=== PATIENT | male | born 1950 | race Caucasian/White ===

== ENCOUNTER 2017-05-09 18:38 | Emergency (ER) | payer OTHER ==
[~2017-05-09] VITALS: Ht 177.8 cm; Wt 69.4 kg
[~2017-05-09 18:38] MED LIST: HYDRALAZINE HCL10 MG PO; NORCO 5-325 TA1 EACH PO; TERAZOSIN HCL1 MG PO
[2017-05-09] MEDS ORDERED: NORCO 5-325 TA1 EACH PO (19:57)
== END 2017-05-09 20:30 | disposition home or self-care (01) ==
LOC: ED 18:38
DX: S43.51XA Sprain of right acromioclavicular joint, initial encounter (principal); Z98.890 Other specified postprocedural states; W18.30XA Fall on same level, unspecified, initial encounter
CPT/HCPCS: 73030; 99283

== ENCOUNTER 2024-05-23 05:55 | Day surgery (SDC) | payer MEDICARE, OTHER ==
[2024-05-16 15:36] VITALS: BP 153/99
[~2024-05-23] VITALS: Ht 177.8 cm; Wt 84.1 kg
[~2024-05-23 05:55] MED LIST changes: +AVAPRO150 MG PO; +LACTATED RINGER'S 1,000 ML IV SCH; +MIDAZOLAM HCL 5 MG/5 ML VIAL IV PRN; +NORVASC5 MG PO; +fentaNYL citrate 100 MCG/2 ML VIAL IV PRN
[2024-05-23 06:04] VITALS: BP 154/90
[2024-05-23] MEDS ORDERED: IBLOOD GLUCOSE TEST STRIP 1 EA TEST VI PRN (07:00)
[2024-05-23] MEDS ORDERED: LIDOCAINE HCL 1% 5 ML SDV INJ ONE (07:00)
[2024-05-23] MEDS ORDERED: LIDOCAINE HCL 2% 5 ML SDV ONE (07:19)
[2024-05-23] MEDS ORDERED: propofoL 200 MG/20 ML VIAL ONE (07:19)
--- NOTE | 2024-05-23 08:39 | NUR ---
05/23/24 0839 Mary Anne Reilly 0817- PT ARRIVES TO THE PACU WITH A NATURAL AIRWAY AND 6L OF O2 VIA MASK. PT IS NON REACTIVE TO VERBAL AND TACTILE STIMULI. ABDOMEN IS SOFT AND NON DISTENDED. PT IS ON HIS LEFT SIDE WITH NO APPARENT DISTRESS. ALL MONITORS PUT IN PLACE. LR INFUSING IN IV ON THE RIGHT HAND. 0830- PT IS NONREACTIVE TO VERBAL AND TACTILE STIMULI. PT IS RESTING WITH NO APPARENT DISTRESS. WILL CONTINUE TO MONITOR. VSS.
[2024-05-23 09:08] VITALS: BP 160/97
--- NOTE | 2024-05-23 09:15 | OR ---
[facility] [address], [place] [address] Signed DATE OF OPERATION: 05/23/2024 SURGEON: Josi Gutiérrez MD PREOPERATIVE DIAGNOSES: 1. Positive Cologuard test. 2. Maternal first cousin with colon cancer. 3. Father with probable colonic polyps. POSTOPERATIVE DIAGNOSES: 1. 15 mm pedunculated polyp at 12 cm in the rectum (tattoo). 2. 5 mm polyp at base of ileocecal valve. 3. 5 mm polyp in proximal right colon. 4. 4 mm polyp in distal right colon. PROCEDURES: 1. Colonoscopy with snare polypectomy hot biopsy and injection of tattoo. 2. Rigid proctoscopy. ESTIMATED BLOOD LOSS: None. INDICATIONS: Gerhard is a 73-year-old gentleman, asked to see me for his initial colonoscopy. He has declined colonoscopies in the past. His Cologuard stool sample came back positive in January 2024. He said he has no lower GI complaints. He said he is not entirely sure if his father had colonic polyps. He is fairly confident that his maternal first cousin had colon cancer. He said he has no lower GI complaints. In the office, I gave him a pamphlet on colonoscopy. He understands the nature of the test. There is risk including, but not limited to gas bloating, crampy abdominal pain, bleeding, perforation requiring surgery, and missed diagnosis. In addition, Gerhard has sleep apnea and declines a CPAP mask. He also has been known to have medical noncompliance in the past. He has hypertension, hyperlipidemia, as well. We asked for monitored anesthesia care propofol infusion for his safety. He had expressed understanding and wanted to proceed. He said his would take him home afterwards. PROCEDURE IN DETAIL: Gerhard was taken into our endoscopy suite and placed in the left lateral decubitus position. He was given monitored anesthesia care, propofol infusion per our nurse drainlayer. A digital rectal exam was performed and this was unremarkable. He had no Electronically Signed By: JOSI GUTIÉRREZ MD 05/23/24 0915 PATIENT NAME: MONIKA NARANJO JR OPERATIVE REPORT DATE OF : 54 REPORT #: [id number] PHYSICIAN: JOSI GUTIÉRREZ MD PCP: JOVANNY BRAMBILA DO REPORT IS CONFIDENTIAL AND NOT TO BE RELEASED WITHOUT AUTHORIZATION [facility] [address], [place] [address] Signed external hemorrhoids. Good sphincter tone. No masses. His prostate is moderately enlarged and indurated. The right is more dominant than the left. The adult colonoscope was introduced. We encountered large at least 15 mm pedunculated polyp behind the first haustral fold. It turned out to be 12 cm from the anal verge with our rigid proctoscope. We took that polyp out in several pieces with the help of the snare. We found it to be quite friable and it suctioned through the scope and caught in the canister. We had a very nice view of the polypectomy site initially and later it was much more difficult to find behind the fold. We finally put a tattoo next to the polypectomy site. We had advanced the scope all the way up into the cecum at that point. His prep was quite excellent. He had some liquid stool that we suctioned out quite readily. We could easily see the appendiceal orifice and ileocecal valve. He had a 5 mm polyp at the base of the ileocecal valve and one just below that in the proximal right colon, which we removed and destroyed completely with hot biopsy forceps. He had just a very tiny 4 mm polyp on a fold in the distal right colon easily removed with a hot biopsy forceps. There was no diverticulosis. Technically his scope was quite straightforward. When we made our way back to the polypectomy site. It took us a while to find it behind the fold and we injected a tattoo next to it. We could not quite get the needle to turn and around the back of the fold. The rigid proctoscope had been inserted and we found that it was 12 cm from the anal verge. Again, the polypectomy sites behind the haustral fold. We retroflexed our flexible scope in the rectum and there was no pathology above the anal canal. After this, the rigid proctoscope was then opened. The gas was allowed to escape and the rigid proctoscope was removed. Gerhard tolerated the procedure quite well. RECOMMENDATIONS: I will see Gerhard back in my office in 7 to 14 days to review his results. MD FLOR Donnelly/ARTURO /[id number] cc: MD Jovanny Donnelly DO Electronically Signed By: JOSI GUTIÉRREZ MD 05/23/24 0915 PATIENT NAME: MONIKA NARANJO JR OPERATIVE REPORT DATE OF : 54 REPORT #: [id number] PHYSICIAN: JOSI GUTIÉRREZ MD PCP: JOVANNY BRAMBILA DO REPORT IS CONFIDENTIAL AND NOT TO BE RELEASED WITHOUT AUTHORIZATION [facility] [address] [place], [place] [address] Signed Copies: JOSI GUTIÉRREZ MD, ARIAN DO ~ Electronically Signed By: JOSI GUTIÉRREZ MD 05/23/24 0915 PATIENT NAME: MONIKA NARANJO JR OPERATIVE REPORT DATE OF : 54 REPORT #: [id number] PHYSICIAN: JOSI GUTIÉRREZ MD PCP: JOVANNY BRAMBILA DO REPORT IS CONFIDENTIAL AND NOT TO BE RELEASED WITHOUT AUTHORIZATION
--- NOTE | 2024-05-27 11:03 | PATH ---
[facility] [address], [place] [address] Signed SPECIMEN(S): A RECTAL POLYP, 12 CM SPECIMEN(S): B ILEOCECAL VALVE POLYP SPECIMEN(S): C PROXIMAL ASCENDING POLYP SPECIMEN(S): D DISTAL ASCENDING POLYP SPECIMEN SOURCE: A. RECTAL POLYP, 12 CM B. ILEOCECAL VALVE POLYP C. PROXIMAL ASCENDING POLYP D. DISTAL ASCENDING POLYP CLINICAL HISTORY: Family history of colon CA, positive Cologuard. Postop: Polyps. FINAL PATHOLOGIC DIAGNOSIS: A. Rectum, 12 cm, polypectomy: - Tubulovillous adenoma B. Colon, ileocecal valve, polypectomy: - Colonic mucosa with no significant pathologic changes C. Colon, proximal ascending, polypectomy: - Tubular adenoma D. Colon, distal ascending, polypectomy: - Tubular adenoma BRP MICROSCOPIC EXAMINATION: Histologic sections of all submitted blocks are examined by light microscopy. These findings, together with the gross examination, support the pathologic diagnosis. GROSS DESCRIPTION: A. The specimen, labeled and designated "Lonnie Han, rectal polyp, 12 cm," is received in formalin and consists of multiple reece soft tissue fragments, 0.1-0.9 cm. Entirely submitted in (A1-A3). B. The specimen, labeled and designated "Oswaldolin M, ileocecal valve polyp," is received in formalin and consists of four reece soft tissue fragments, ranging from 0.2-0.4 cm. Entirely submitted in (B1). C. The specimen, labeled and designated "Oswaldolin M, proximal ascending polyp," is received in formalin and consists of two reece soft tissue fragments, ranging from 0.2-0.3 cm. Entirely submitted in PATIENT NAME: MONIKA NARANJO JR PATHOLOGY DATE OF : 54 REPORT #: [id number] PHYSICIAN: CHEIKH MAY PCP: MINDY BRAMBILA DO REPORT IS CONFIDENTIAL AND NOT TO BE RELEASED WITHOUT AUTHORIZATION [facility] [address], [place] [address] Signed (C1). D. The specimen, labeled and designated "Lonnie Han, distal ascending polyp," is received in formalin and consists of one reece soft tissue fragment, 0.3 cm. Entirely submitted in (D1). AB (under the direct supervision of a pathologist) The Gross Description was prepared using a voice recognition system. The report was reviewed for accuracy; however, sound-alike word errors, addition and/or deletions may occur. If there is any question about this report, please contact Client Services. ADDITIONAL NOTES: Immunohistochemical and/or in situ hybridization studies if performed in this case included appropriate positive controls that reacted as expected. This test was developed and its performance characteristics determined by [facility]. It has not been cleared or approved by the U.S. Food and Drug Administration. The FDA has determined that such clearance or approval is not necessary. This test is used for clinical purposes. It should not be regarded as investigational or for research. [facility] is certified under the Clinical Laboratory Improvement Amendments of 1988 (CLIA) as qualified to perform high complexity clinical laboratory testing. PERFORMING LABORATORY: Technical component was performed by [facility], [address] [place] [id number] (CLIA# [id number]). Professional interpretation was performed by [facility], [address] [place], [place] [address] (CLIA#: [id number]). Diagnostician: Carl Parada MD Pathologist Electronically Signed 05/27/2024 Copies: ~ PATIENT NAME: MONIKA NARAJNO JR PATHOLOGY DATE OF : 54 REPORT #: [id number] PHYSICIAN: CHEIKH MAY PCP: MINDY BRAMBILA DO REPORT IS CONFIDENTIAL AND NOT TO BE RELEASED WITHOUT AUTHORIZATION
== END 2024-05-23 09:17 | disposition home or self-care (01) ==
LOC: DS 05:55
PROVIDERS: ATTEND Colon & Rectal Surgery
PROC: 0DBP8ZZ Excision of Rectum, Via Natural or Artificial Opening Endoscopic (ICD-10-PCS; 2024-05-23)
PROC: 0DBF8ZZ Excision of Right Large Intestine, Via Natural or Artificial Opening Endoscopic (ICD-10-PCS; 2024-05-23)
PROC: 0DBC8ZZ Excision of Ileocecal Valve, Via Natural or Artificial Opening Endoscopic (ICD-10-PCS; principal; 2024-05-23 07:30)
DX: Z12.11 Encounter for screening for malignant neoplasm of colon (principal); D12.8 Benign neoplasm of rectum; D12.2 Benign neoplasm of ascending colon; K63.5 Polyp of colon; I10 Essential (primary) hypertension; E78.5 Hyperlipidemia, unspecified; G47.33 Obstructive sleep apnea (adult) (pediatric); Z79.82 Long term (current) use of aspirin; Z79.899 Other long term (current) drug therapy; Z99.89 Dependence on other enabling machines and devices; Z80.0 Family history of malignant neoplasm of digestive organs; Z83.718 Family history of other colon polyps
CPT/HCPCS: 00811; 88305; J2003; J2704